=== PATIENT | male | born 1985 | race Hispanic/Latino ===

== ENCOUNTER 2019-04-10 17:58 | Emergency (ER) | payer SELFPAY ==
[2019-04-10] MEDS ORDERED: KETOROLAC 30 MG/ML INJ ONE (18:59)
--- NOTE | 2019-04-10 19:03 | ER ---
Nurse's Notes [facility] Name: Kendall Mata Age: 33 yrs Sex: Male : 1985 Arrival Date: 04/10/2019 Time: 18:00 Bed 12 Private MD: Diagnosis: Pain in left foot Presentation: 04/10 18:09 Presenting complaint: Patient states: pain to left heel that began 1 week ago. Pt aa5 denies known injury. Transition of care: patient was not received from another setting of care. Onset of symptoms was March 2019. Risk Assessment: Do you want to hurt yourself or someone else? Patient reports no desire to harm self or others. Initial Sepsis Screen: Does the patient meet any 2 criteria? No. Patient's initial sepsis screen is negative. Does the patient have a suspected source of infection? No. Patient's initial sepsis screen is negative. Care prior to arrival: None. 18:09 Method Of Arrival: Ambulatory aa5 18:09 Acuity: ZOHAIB 4 aa5 Historical: - Allergies: 18:10 No Known Allergies; aa5 - PMHx: 18:10 None; aa5 - PSHx: 18:10 None; aa5 - Immunization history:: Flu vaccine is not up to date. - Social history:: Smoking status: Patient uses tobacco products, smokes one-half pack cigarettes per day. - Ebola Screening: : No symptoms or risks identified at this time. Screenin:10 Abuse screen: Denies threats or abuse. Nutritional screening: No deficits noted. aa5 Tuberculosis screening: No symptoms or risk factors identified. Fall Risk None identified. Assessment: 18:10 General: Appears comfortable, Behavior is calm, cooperative. Pain: Complains of pain in aa5 left heel Quality of pain is described as pressure. Neuro: Level of Consciousness is awake, alert, obeys commands, Oriented to person, place, time, situation. Cardiovascular: Patient's skin is warm and dry. Respiratory: Airway is patent Respiratory effort is even, unlabored, Respiratory pattern is regular, symmetrical. GI: No signs and/or symptoms were reported involving the gastrointestinal system. : No signs and/or symptoms were reported regarding the genitourinary system. EENT: No signs and/or symptoms were reported regarding the EENT system. Derm: Skin is pink, warm \T\ dry. Musculoskeletal: Range of motion: intact in all extremities. 18:46 Reassessment: Patient appears in no apparent distress at this time. Patient and/or iw family updated on plan of care and expected duration. Pain level reassessed. Patient is alert, oriented x 3, equal unlabored respirations, skin warm/dry/pink. Vital Signs: 18:10 BP 139 / 72; Pulse 88; Resp 18 S; Temp 97.8(TE); Pulse Ox 97% on R/A; Weight 102.97 kg aa5 (R); Height 5 ft. 9 in. (175.26 cm) (R); Pain 3/10; 18:10 Body Mass Index 33.52 (102.97 kg, 175.26 cm) aa5 ED Course: 18:00 Patient arrived in ED. rg4 18:02 Meghana Mejía FNP-C is [facility]. snw 18:02 Kishan Webb MD is Attending Physician. snw 18:09 Arm band placed on. aa5 18:09 Patient has correct armband on for positive identification. Adult w/ patient. aa5 18:10 Triage completed. aa5 18:39 Alexsandra Leo, RN is Primary Nurse. aa5 18:46 No provider procedures requiring assistance completed. Patient did not have IV access iw during this emergency room visit. 20:36 Foot Left 3 View XRAY In Process Unspecified. EDMS Administered Medications: 18:46 Drug: TORadol 30 mg Route: IM; Site: right deltoid; iw 19:13 Follow up: Response: No adverse reaction ak1 Outcome: 19:03 Discharge ordered by . snw 19:18 Discharged to home ambulatory, with family. ak1 19:18 Condition: good 19:18 Discharge instructions given to patient, family, Instructed on discharge instructions, follow up and referral plans. no drinking with medication, no driving heavy equipment, medication usage, Demonstrated understanding of instructions, follow-up care, medications, Prescriptions given X 1. 19:18 Patient left the ED. ak1 Signatures: Dispatcher [employer] EDMS Meghana Mejía FNP-C FNP-Carol Ann Peck RN RN iw Alexsandra Leo RN RN aa5 Miriam Pena RN RN ak1 Shanice Mack rg4
--- NOTE | 2019-04-10 19:03 | EDPHYS ---
Physician Documentation [facility] Name: Kendall Mata Age: 33 yrs Sex: Male : 1985 Arrival Date: 04/10/2019 Time: 18:00 Bed 12 Private MD: ED Physician Kishan Webb HPI: 04/10 18:43 This 33 yrs old Male presents to ER via Ambulatory with complaints of heel snw pain. 18:43 Onset: The symptoms/episode began/occurred gradually, and became persistent. Associated snw signs and symptoms: Pertinent positives: pain on ambulation, walking on tiptoe to left. Modifying factors: the patient symptoms are aggravated by pressure. The patient has not experienced similar symptoms in the past. The patient has not recently seen a physician. pt states he was unable to walk in work boots today and called in second to pain. Historical: - Allergies: 18:10 No Known Allergies; aa5 - PMHx: 18:10 None; aa5 - PSHx: 18:10 None; aa5 - Immunization history:: Flu vaccine is not up to date. - Social history:: Smoking status: Patient uses tobacco products, smokes one-half pack cigarettes per day. - Ebola Screening: : No symptoms or risks identified at this time. ROS: 18:43 Constitutional: Negative for fever, chills, and weight loss, Eyes: Negative for injury, snw pain, redness, and discharge, ENT: Negative for injury, pain, and discharge, Neck: Negative for injury, pain, and swelling, Cardiovascular: Negative for chest pain, palpitations, and edema, Respiratory: Negative for shortness of breath, cough, wheezing, and pleuritic chest pain, Abdomen/GI: Negative for abdominal pain, nausea, vomiting, diarrhea, and constipation, Back: Negative for injury and pain, : Negative for injury, bleeding, discharge, and swelling, Skin: Negative for injury, rash, and discoloration, Neuro: Negative for headache, weakness, numbness, tingling, and seizure. 18:43 MS/extremity: Positive for pain, of the left heel pain . Exam: 18:43 Constitutional: This is a well developed, well nourished patient who is awake, alert, snw and in no acute distress. Head/Face: Normocephalic, atraumatic. Eyes: Pupils equal round and reactive to light, extra-ocular motions intact. Lids and lashes normal. Conjunctiva and sclera are non-icteric and not injected. Cornea within normal limits. Periorbital areas with no swelling, redness, or edema. Chest/axilla: Normal chest wall appearance and motion. Nontender with no deformity. No lesions are appreciated. Cardiovascular: Regular rate and rhythm with a normal S1 and S2. No gallops, murmurs, or rubs. Normal PMI, no JVD. No pulse deficits. Respiratory: Lungs have equal breath sounds bilaterally, clear to auscultation and percussion. No rales, rhonchi or wheezes noted. No increased work of breathing, no retractions or nasal flaring. Back: No spinal tenderness. No costovertebral tenderness. Full range of motion. Skin: Warm, dry with normal turgor. Normal color with no rashes, no lesions, and no evidence of cellulitis. Neuro: Awake and alert, GCS 15, oriented to person, place, time, and situation. Cranial nerves II-XII grossly intact. Motor strength 5/5 in all extremities. Sensory grossly intact. Cerebellar exam normal. Normal gait. Psych: Awake, alert, with orientation to person, place and time. Behavior, mood, and affect are within normal limits. 18:43 Musculoskeletal/extremity: Extremities: grossly normal except: noted in the left heel: pain, ROM: no acute changes, Circulation is intact in all extremities. Sensation intact. Vital Signs: 18:10 BP 139 / 72; Pulse 88; Resp 18 S; Temp 97.8(TE); Pulse Ox 97% on R/A; Weight 102.97 kg aa5 (R); Height 5 ft. 9 in. (175.26 cm) (R); Pain 3/10; 18:10 Body Mass Index 33.52 (102.97 kg, 175.26 cm) aa5 MDM: 18:21 Patient medically screened. [facility] 19:03 Data reviewed: vital signs, nurses notes. Data interpreted: Pulse oximetry: on room air snw is 97 %. Interpretation: normal. Counseling: I had a detailed discussion with the patient and/or guardian regarding: the historical points, exam findings, and any diagnostic results supporting the discharge/admit diagnosis, radiology results, the need for outpatient follow up, to return to the emergency department if symptoms worsen or persist or if there are any questions or concerns that arise at home. Special discussion: I have referred the patient to see his PCP for further evaluation of high blood pressure. Based on the history and exam findings, there is no indication for further emergent testing or inpatient evaluation. I discussed with the patient/guardian the need to see the primary care provider for further evaluation of the symptoms. 04/10 18:41 Order name: Foot Left 3 View XRAY snw Administered Medications: 18:46 Drug: TORadol 30 mg Route: IM; Site: right deltoid; iw 19:13 Follow up: Response: No adverse reaction ak1 Disposition: 04/11 07:07 Co-signature as Attending Physician, Kishan Webb MD I agree with the assessment and dalton plan of care. Disposition: 04/10/19 19:03 Discharged to Home. Impression: Pain in left foot. - Condition is Stable. - Discharge Instructions: Musculoskeletal Pain, Cryotherapy, Heat Therapy. - Prescriptions for Diclofenac Sodium 75 mg Oral Tablet Sustained Release - take 1 tablet by ORAL route 2 times per day; 30 tablet. - Work release form, Medication Reconciliation Form, Thank You Letter, Antibiotic Education, Prescription Opioid Use form. - Follow up: Private Physician; When: 2 - 3 days; Reason: Recheck today's complaints, Continuance of care, Re-evaluation by your physician. Follow up: Emergency Department; When: As needed; Reason: Worsening of condition. Signatures: Dispatcher [employer] Kishan Nickerson MD MD cha Therrien, Shelly, PATENT PARALEGAL-C PATENT PARALEGAL-Csnw Carol Ann Piedra RN RN iw Calderon, Audri, RN RN aa5 Miriam Pena RN RN ak1 Corrections: (The following items were deleted from the chart) 04/10 19:18 19:03 04/10/2019 19:03 Discharged to Home. Impression: Pain in left foot. Condition is ak1 Stable. Discharge Instructions: Musculoskeletal Pain, Cryotherapy, Heat Therapy. Prescriptions for Diclofenac Sodium 75 mg Oral Tablet Sustained Release - take 1 tablet by ORAL route 2 times per day; 30 tablet. and Forms are Work release form, Medication Reconciliation Form, Thank You Letter, Antibiotic Education, Prescription Opioid Use. Follow up: Private Physician; When: 2 - 3 days; Reason: Recheck today's complaints, Continuance of care, Re-evaluation by your physician. Follow up: Emergency Department; When: As needed; Reason: Worsening of condition. snw
--- NOTE | 2019-04-12 12:36 | RAD REPORT ---
EXAM DESCRIPTION: RAD - Foot Left 3 View - 04/11/2019 11:39 am CLINICAL HISTORY: Left Foot pain FINDINGS: No fracture or dislocation is seen. No significant bone or joint abnormality seen
== END 2019-04-10 19:18 | disposition home or self-care (01) ==
LOC: ER 17:58
DX: M79.672 Pain in left foot (principal); F17.210 Nicotine dependence, cigarettes, uncomplicated
CPT/HCPCS: 96372; 99283

== ENCOUNTER 2019-05-08 06:01 | Emergency (ER) | payer SELFPAY ==
--- OUTSIDE RECORDS SUMMARY | 2019-05-08 06:04 | XMS REPORT ---
:1985 [facility] Address [address] [place] [address] [place] [id number] Care Team Providers Name Role Phone Unavailable Unavailable Unavailable Problems This patient has no known problems. Allergies, Adverse Reactions, Alerts This patient has no known allergies or adverse reactions. Medications This patient has no known medications.
[2019-05-08] MEDS ORDERED: HYDROCODONE/APAP 7.5/325 MG TAB ONE (06:38)
--- NOTE | 2019-05-08 07:02 | ER ---
Nurse's Notes [facility] Name: Kendall Mata Age: 33 yrs Sex: Male : 1985 Arrival Date: 05/08/2019 Time: 06:03 Bed 5 Private MD: Diagnosis: Sprain of ankle Presentation: 05/08 06:20 Presenting complaint: Patient states: I was walking in my house and there is a step ed1 down from the kitchen to the living room and I rolled my ankle. Transition of care: patient was not received from another setting of care. Onset of symptoms was May 08, 2019. Risk Assessment: Do you want to hurt yourself or someone else? Patient reports no desire to harm self or others. Initial Sepsis Screen: Does the patient meet any 2 criteria? No. Patient's initial sepsis screen is negative. Does the patient have a suspected source of infection? No. Patient's initial sepsis screen is negative. Care prior to arrival: None. 06:20 Method Of Arrival: Wheelchair ed1 06:20 Acuity: ZOHAIB 4 ed1 Triage Assessment: 06:21 General: Appears uncomfortable, Behavior is calm, cooperative. Pain: Complains of pain ed1 in lateral side of right foot and right lateral malleolus Pain currently is 8 out of 10 on a pain scale. Quality of pain is described as sharp, throbbing, Pain began 1 hour ago. Musculoskeletal: Circulation, motion, and sensation intact. Range of motion: limited in right ankle Swelling present in right ankle. Historical: - Allergies: 06:21 No Known Allergies; ed1 - Home Meds: 06:21 None [Active]; ed1 - PMHx: 06:21 None; ed1 - PSHx: 06:21 None; ed1 - Immunization history:: Adult Immunizations up to date. - Social history:: Smoking status: Patient uses tobacco products, smokes one-half pack cigarettes per day. - Ebola Screening: : Patient negative for fever greater than or equal to 101.5 degrees Fahrenheit, and additional compatible Ebola Virus Disease symptoms Patient denies exposure to infectious person Patient denies travel to an Ebola-affected area in the 21 days before illness onset No symptoms or risks identified at this time. Screenin:48 Abuse screen: Denies threats or abuse. Denies injuries from another. Nutritional lp1 screening: No deficits noted. Tuberculosis screening: No symptoms or risk factors identified. Fall Risk None identified. Assessment: 06:47 General: Appears uncomfortable, Behavior is appropriate for age. Pain: Complains of lp1 pain in right ankle. Neuro: No deficits noted. Cardiovascular: No deficits noted. Respiratory: No deficits noted. GI: No deficits noted. : No deficits noted. EENT: No deficits noted. Derm: Skin is pink, warm \T\ dry. Musculoskeletal: Range of motion: limited in right ankle Swelling present in right ankle. 07:19 Reassessment: Patient appears in no apparent distress at this time. Patient and/or jd3 family updated on plan of care and expected duration. Pain level reassessed. Patient is alert, oriented x 3, equal unlabored respirations, skin warm/dry/pink. reported understanding of discharge. Vital Signs: 06:21 BP 121 / 87; Pulse 103; Resp 17; Temp 97.9(TE); Pulse Ox 97% on R/A; Weight 99.79 kg ed1 (R); Height 5 ft. 9 in. (175.26 cm) (R); Pain 8/10; 06:21 Body Mass Index 32.49 (99.79 kg, 175.26 cm) ed1 ED Course: 06:03 Patient arrived in ED. am2 06:15 Yessenia Rand FNP-C is [facility]. kb 06:15 Kishan Webb MD is Attending Physician. kb 06:21 Triage completed. ed1 06:21 Arm band placed on. ed1 06:46 X-ray completed. Portable x-ray completed in exam room. Patient tolerated procedure kw well. 06:47 Mili Ramirez, RN is Primary Nurse. lp1 06:48 Patient has correct armband on for positive identification. lp1 06:49 Ankle Right 3 View XRAY In Process Unspecified. EDMS 07:18 No provider procedures requiring assistance completed. Patient did not have IV access jd3 during this emergency room visit. Crutch training done. Melvin wrap to right ankle. Administered Medications: 06:24 Drug: [place] (7.5 mg-325 mg) 1 tabs Route: PO; ed1 07:18 Follow up: Response: No adverse reaction jd3 Outcome: 07:02 Discharge ordered by . kb 07:18 Discharged to home ambulatory, with family. jd3 07:18 Condition: stable 07:18 Discharge instructions given to patient, Instructed on discharge instructions, follow up and referral plans. medication usage, Demonstrated understanding of instructions, follow-up care, medications, Prescriptions given X 1. 07:21 Patient left the ED. jd3 Signatures: Dispatcher [employer] EDCO Yessenia Rand, NIGHT WAREHOUSE MANAGER-C NIGHT WAREHOUSE MANAGER-Jayne Sharma RN RN ed1 Courtney Lombardo Laura, RN RN lp1 Mary Gutierrez am2 Trever Roberson RN RN jd3
--- NOTE | 2019-05-08 07:02 | EDPHYS ---
Physician Documentation [facility] Name: Kendall Mata Age: 33 yrs Sex: Male : 1985 Arrival Date: 05/08/2019 Time: 06:03 Bed 5 Private MD: ED Physician Kishan Webb HPI: 05/08 06:19 This 33 yrs old Male presents to ER via Unassigned with complaints of Ankle kb Injury. 06:19 The patient presents with an injury, pain, that is acute, swelling, tenderness. The kb complaints affect the right ankle. Onset: The symptoms/episode began/occurred just prior to arrival. Context: The problem was sustained at home, resulted from the patient tripping, strep. Associated signs and symptoms: Pertinent positives: swelling, Pertinent negatives: calf tenderness, fever, nausea, numbness, rash, tingling, vomiting, warmth, weakness. Modifying factors: The symptoms are alleviated by nothing, the symptoms are aggravated by weight bearing, movement. Severity of symptoms: At their worst the symptoms were moderate, in the emergency department the symptoms are unchanged. The patient has not experienced similar symptoms in the past. The patient has not recently seen a physician. Historical: - Allergies: 06:21 No Known Allergies; ed1 - Home Meds: 06:21 None [Active]; ed1 - PMHx: 06:21 None; ed1 - PSHx: 06:21 None; ed1 - Immunization history:: Adult Immunizations up to date. - Social history:: Smoking status: Patient uses tobacco products, smokes one-half pack cigarettes per day. - Ebola Screening: : Patient negative for fever greater than or equal to 101.5 degrees Fahrenheit, and additional compatible Ebola Virus Disease symptoms Patient denies exposure to infectious person Patient denies travel to an Ebola-affected area in the 21 days before illness onset No symptoms or risks identified at this time. ROS: 06:19 Constitutional: Negative for fever, chills, and weight loss, Cardiovascular: Negative kb for chest pain, palpitations, and edema, Respiratory: Negative for shortness of breath, cough, wheezing, and pleuritic chest pain, Abdomen/GI: Negative for abdominal pain, nausea, vomiting, diarrhea, and constipation, Skin: Negative for injury, rash, and discoloration, Neuro: Negative for headache, weakness, numbness, tingling, and seizure. 06:19 MS/extremity: Positive for injury or acute deformity, pain, swelling, tenderness. Exam: 06:19 Constitutional: This is a well developed, well nourished patient who is awake, alert, kb and in no acute distress. Head/Face: Normocephalic, atraumatic. Neck: Trachea midline, no thyromegaly or masses palpated, and no cervical lymphadenopathy. Supple, full range of motion without nuchal rigidity, or vertebral point tenderness. No Meningismus. Chest/axilla: Normal chest wall appearance and motion. Nontender with no deformity. No lesions are appreciated. Cardiovascular: Regular rate and rhythm with a normal S1 and S2. No gallops, murmurs, or rubs. Normal PMI, no JVD. No pulse deficits. Respiratory: Lungs have equal breath sounds bilaterally, clear to auscultation and percussion. No rales, rhonchi or wheezes noted. No increased work of breathing, no retractions or nasal flaring. Abdomen/GI: Soft, non-tender, with normal bowel sounds. No distension or tympany. No guarding or rebound. No evidence of tenderness throughout. Skin: Warm, dry with normal turgor. Normal color with no rashes, no lesions, and no evidence of cellulitis. Neuro: Awake and alert, GCS 15, oriented to person, place, time, and situation. Cranial nerves II-XII grossly intact. Motor strength 5/5 in all extremities. Sensory grossly intact. Cerebellar exam normal. Normal gait. 06:19 Musculoskeletal/extremity: Extremities: grossly normal except: noted in the right ankle: pain, swelling, tenderness, ROM: intact in all extremities, Circulation is intact in all extremities. Sensation intact. Weight bearing: can bear weight with assistance only. Vital Signs: 06:21 BP 121 / 87; Pulse 103; Resp 17; Temp 97.9(TE); Pulse Ox 97% on R/A; Weight 99.79 kg ed1 (R); Height 5 ft. 9 in. (175.26 cm) (R); Pain 8/10; 06:21 Body Mass Index 32.49 (99.79 kg, 175.26 cm) ed1 MDM: 06:16 Patient medically screened. kb 06:19 Data reviewed: vital signs, nurses notes. Data interpreted: Pulse oximetry: on room air kb is 100 %. Interpretation: normal. 07:01 Counseling: I had a detailed discussion with the patient and/or guardian regarding: the kb historical points, exam findings, and any diagnostic results supporting the discharge/admit diagnosis, radiology results, the need for outpatient follow up, a family practitioner, a orthopedic surgeon, to return to the emergency department if symptoms worsen or persist or if there are any questions or concerns that arise at home. 05/08 06:18 Order name: Ankle Right 3 View XRAY kb 05/08 07:09 Order name: Melvin Wrap; Complete Time: 07:17 kb 05/08 07:09 Order name: Crutches; Complete Time: 07:17 kb Administered Medications: 06:24 Drug: [place] (7.5 mg-325 mg) 1 tabs Route: PO; ed1 07:18 Follow up: Response: No adverse reaction jd3 Disposition: 08:33 Co-signature as Attending Physician, Kishan Webb MD I agree with the assessment and dalton plan of care. Disposition: 05/08/19 07:02 Discharged to Home. Impression: Sprain of ankle. - Condition is Stable. - Discharge Instructions: Ankle Sprain, [id number]. - Prescriptions for Diclofenac Sodium 75 mg Oral Tablet, Delayed Release (E.C.) - take 1 tablet by ORAL route 2 times per day As needed; 30 tablet. - Work release form, Medication Reconciliation Form, Thank You Letter, Antibiotic Education, Prescription Opioid Use form. - Follow up: Emergency Department; When: As needed; Reason: Worsening of condition. Follow up: Private Physician; When: 2 - 3 days; Reason: Recheck today's complaints, Continuance of care, Re-evaluation by your physician. Signatures: Dispatcher [employer] EDMI Yessenia Rand, PRITIC PAUL-Kishan Junior MD MD cha Riggs, Erika, RN RN ed1 Trever Roberson RN RN jd3 Corrections: (The following items were deleted from the chart) 07:21 07:02 05/08/2019 07:02 Discharged to Home. Impression: Sprain of ankle. Condition is jd3 Stable. Forms are Medication Reconciliation Form, Thank You Letter, Antibiotic Education, Prescription Opioid Use. Follow up: Emergency Department; When: As needed; Reason: Worsening of condition. Follow up: Private Physician; When: 2 - 3 days; Reason: Recheck today's complaints, Continuance of care, Re-evaluation by your physician. kb
--- NOTE | 2019-05-08 08:19 | RAD REPORT ---
EXAM DESCRIPTION: RAD - Ankle Right 3 View - 05/08/2019 6:49 am CLINICAL HISTORY: PAIN Twisting injury to the right ankle COMPARISON: No comparisons FINDINGS: Soft tissue swelling is noted. No acute fracture or dislocation seen.
== END 2019-05-08 07:21 | disposition home or self-care (01) ==
LOC: ER 06:01
DX: S93.401A Sprain of unspecified ligament of right ankle, initial encounter (principal); W01.0XXA Fall on same level from slipping, tripping and stumbling without subsequent striking against object, initial encounter; Y92.009 Unspecified place in unspecified non-institutional (private) residence as the place of occurrence of the external cause; F17.210 Nicotine dependence, cigarettes, uncomplicated
CPT/HCPCS: 99284

== ENCOUNTER 2019-09-05 15:55 | Emergency (ER) | payer SELFPAY ==
--- NOTE | 2019-09-05 17:07 | ER ---
Nurse's Notes [facility] Name: Kendall Mata Age: 33 yrs Sex: Male : 1985 Arrival Date: 09/05/2019 Time: 15:55 Bed 10 Private MD: Diagnosis: Malaise and fatigue Presentation: 09/05 16:02 Presenting complaint: Malaise, sore throat, and fatigue x 2 days. Transition of care: hb patient was not received from another setting of care. Onset of symptoms was September 04, 2019. Risk Assessment: Do you want to hurt yourself or someone else?. Initial Sepsis Screen: Does the patient meet any 2 criteria? No. Patient's initial sepsis screen is negative. Does the patient have a suspected source of infection? No. Patient's initial sepsis screen is negative. Care prior to arrival: None. 16:02 Method Of Arrival: Ambulatory 16:02 Acuity: ZOHAIB 4 hb Triage Assessment: 16:45 General: Appears in no apparent distress. iw 17:10 General: Behavior is calm. iw Historical: - Allergies: 16:04 No Known Allergies; hb - Home Meds: 16:04 None [Active]; hb - PSHx: 16:04 None; hb - Immunization history:: Adult Immunizations up to date. - Social history:: Smoking status: Patient uses tobacco products, smokes one-half pack cigarettes per day. - Ebola Screening: : No symptoms or risks identified at this time. Screenin:40 Abuse screen: Denies threats or abuse. Denies injuries from another. Nutritional iw screening: No deficits noted. Tuberculosis screening: No symptoms or risk factors identified. Fall Risk None identified. Assessment: 16:40 General: Appears in no apparent distress. Behavior is calm, cooperative. Pain: iw Complains of pain in head. Neuro: Level of Consciousness is awake, alert, obeys commands, Oriented to person, place, time, situation, Moves all extremities. Cardiovascular: Capillary refill < 3 seconds in bilateral fingers. Respiratory: Respiratory effort is even, unlabored, Respiratory pattern is regular, symmetrical. GI: No signs and/or symptoms were reported involving the gastrointestinal system. Derm: Skin is intact, is healthy with good turgor. Musculoskeletal: Range of motion: intact in all extremities. Vital Signs: 16:04 BP 109 / 72; Pulse 80; Resp 16; Temp 97.2(TE); Pulse Ox 99% on R/A; Weight 99.79 kg; hb Height 5 ft. 9 in. (175.26 cm); Pain 5/10; 16:04 Body Mass Index 32.49 (99.79 kg, 175.26 cm) hb ED Course: 15:55 Patient arrived in ED. as 16:00 Yessenia Rand FNP-C is [facility]. kb 16:00 Griffin Manning MD is Attending Physician. kb 16:03 Triage completed. hb 16:04 Arm band placed on. hb 16:40 Patient has correct armband on for positive identification. iw 17:10 Carol Ann Piedra, RN is Primary Nurse. iw 17:19 No provider procedures requiring assistance completed. Patient did not have IV access iw during this emergency room visit. Administered Medications: No medications were administered Outcome: 17:05 Discharge ordered by MD. kb 17:19 Discharged to home ambulatory. iw 17:19 Condition: good 17:19 Discharge instructions given to patient, family, Instructed on discharge instructions, follow up and referral plans. Demonstrated understanding of instructions, follow-up care. 17:20 Patient left the ED. iw Signatures: Yessenia Rand FNP-C FNP-Omayra Bates as Carol Ann Piedra, RN MARILU iw Vanessa Calix RN RN hb Corrections: (The following items were deleted from the chart) 16:05 16:02 Social history: Smoking status: Patient/guardian denies using tobacco, hb hb
--- NOTE | 2019-09-05 17:08 | EDPHYS ---
Physician Documentation [facility] Name: Kendall Mata Age: 33 yrs Sex: Male : 1985 Arrival Date: 09/05/2019 Time: 15:55 Bed 10 Private MD: ED Physician Grififn Manning HPI: 09/05 16:58 This 33 yrs old Male presents to ER via Ambulatory with complaints of Flu kb Symptoms. 17:01 The patient or guardian reports flu symptoms, arthralgias, myalgias, no appetite. kb Onset: The symptoms/episode began/occurred yesterday. Severity of symptoms: At their worst the symptoms were mild, moderate, in the emergency department the symptoms are unchanged. Modifying factors: The symptoms are alleviated by nothing, the symptoms are aggravated by nothing. Associated signs and symptoms: Pertinent positives: sore throat, Pertinent negatives: chest pain, diarrhea, ear ache, fever, nausea, rhinorrhea, vomiting. The patient has not experienced similar symptoms in the past. The patient has not recently seen a physician. Pt reports he had the flu at the beginning of the year and was told he could have done something about it if he would have came in sooner so he came in early this time. States fatigue, malaise and sore throat started yesterday. . Historical: - Allergies: 16:04 No Known Allergies; hb - Home Meds: 16:04 None [Active]; hb - PSHx: 16:04 None; hb - Immunization history:: Adult Immunizations up to date. - Social history:: Smoking status: Patient uses tobacco products, smokes one-half pack cigarettes per day. - Ebola Screening: : No symptoms or risks identified at this time. ROS: 16:59 Neck: Negative for injury, pain, and swelling, Cardiovascular: Negative for chest pain, kb palpitations, and edema, Respiratory: Negative for shortness of breath, cough, wheezing, and pleuritic chest pain, Abdomen/GI: Negative for abdominal pain, nausea, vomiting, diarrhea, and constipation, Back: Negative for injury and pain, : Negative for injury, bleeding, discharge, and swelling, MS/Extremity: Negative for injury and deformity, Skin: Negative for injury, rash, and discoloration, Neuro: Negative for headache, weakness, numbness, tingling, and seizure. 16:59 Constitutional: Positive for body aches, fatigue, malaise, Negative for chills, fever, poor PO intake, weight loss. 16:59 ENT: Positive for sore throat. Exam: 16:59 Constitutional: This is a well developed, well nourished patient who is awake, alert, kb and in no acute distress. Head/Face: Normocephalic, atraumatic. ENT: Nares patent. No nasal discharge, no septal abnormalities noted. Tympanic membranes are normal and external auditory canals are clear. Oropharynx with no redness, swelling, or masses, exudates, or evidence of obstruction, uvula midline. Mucous membranes moist. Neck: Trachea midline, no thyromegaly or masses palpated, and no cervical lymphadenopathy. Supple, full range of motion without nuchal rigidity, or vertebral point tenderness. No Meningismus. Chest/axilla: Normal chest wall appearance and motion. Nontender with no deformity. No lesions are appreciated. Cardiovascular: Regular rate and rhythm with a normal S1 and S2. No gallops, murmurs, or rubs. Normal PMI, no JVD. No pulse deficits. Respiratory: Lungs have equal breath sounds bilaterally, clear to auscultation and percussion. No rales, rhonchi or wheezes noted. No increased work of breathing, no retractions or nasal flaring. Abdomen/GI: Soft, non-tender, with normal bowel sounds. No distension or tympany. No guarding or rebound. No evidence of tenderness throughout. Skin: Warm, dry with normal turgor. Normal color with no rashes, no lesions, and no evidence of cellulitis. MS/ Extremity: Pulses equal, no cyanosis. Neurovascular intact. Full, normal range of motion. Neuro: Awake and alert, GCS 15, oriented to person, place, time, and situation. Cranial nerves II-XII grossly intact. Motor strength 5/5 in all extremities. Sensory grossly intact. Cerebellar exam normal. Normal gait. Vital Signs: 16:04 BP 109 / 72; Pulse 80; Resp 16; Temp 97.2(TE); Pulse Ox 99% on R/A; Weight 99.79 kg; hb Height 5 ft. 9 in. (175.26 cm); Pain 5/10; 16:04 Body Mass Index 32.49 (99.79 kg, 175.26 cm) hb MDM: 16:06 Patient medically screened. kb 16:59 Data reviewed: vital signs, nurses notes. Data interpreted: Pulse oximetry: on room air kb is 99 %. Interpretation: normal. Counseling: I had a detailed discussion with the patient and/or guardian regarding: the historical points, exam findings, and any diagnostic results supporting the discharge/admit diagnosis, lab results, the need for outpatient follow up, a family practitioner, to return to the emergency department if symptoms worsen or persist or if there are any questions or concerns that arise at home. 09/05 16:06 Order name: Flu; Complete Time: 17:05 kb 09/05 16:06 Order name: Strep; Complete Time: 16:45 kb 09/05 16:48 Order name: Throat Culture EDMS Administered Medications: No medications were administered Disposition: 09/06 06:50 Co-signature as Attending Physician, Griffin Manning MD I agree with the assessment and kdr plan of care. Disposition: 09/05/19 17:05 Discharged to Home. Impression: Malaise and fatigue. - Condition is Stable. - Discharge Instructions: Fatigue, Viral Respiratory Infection, [id number]. - Work release form, Medication Reconciliation Form, Thank You Letter, Antibiotic Education, Prescription Opioid Use form. - Follow up: Emergency Department; When: As needed; Reason: Worsening of condition. Follow up: Private Physician; When: 2 - 3 days; Reason: Recheck today's complaints, Continuance of care, Re-evaluation by your physician. Signatures: Dispatcher [employer] EDNV Yessenia Rand, REFERRAL NURSE-C REFERRAL NURSE-Ckb Griffin Manning MD MD [facility] Carol Ann Piedra RN RN iw Vanessa Calix RN RN Corrections: (The following items were deleted from the chart) 09/05 16:05 16:02 Social history: Smoking status: Patient/guardian denies using tobacco, hb hb 17:20 17:05 09/05/2019 17:05 Discharged to Home. Impression: Malaise and fatigue. Condition iw is Stable. Forms are Medication Reconciliation Form, Thank You Letter, Antibiotic Education, Prescription Opioid Use. Follow up: Emergency Department; When: As needed; Reason: Worsening of condition. Follow up: Private Physician; When: 2 - 3 days; Reason: Recheck today's complaints, Continuance of care, Re-evaluation by your physician. kb
[2019-09-05 20:35] VITALS: BP 109/72; TEMP 97.2; O2SAT 99
== END 2019-09-05 17:20 | disposition home or self-care (01) ==
LOC: ER 15:55
DX: R53.81 Other malaise (principal); R53.83 Other fatigue; F17.210 Nicotine dependence, cigarettes, uncomplicated
CPT/HCPCS: 87070; 87081; 87804; 99281

== ENCOUNTER 2019-12-08 09:51 | Emergency (ER) | payer SELFPAY ==
[2019-12-08] MEDS ORDERED: TRAMADOL HCL 50 MG TAB ONE (10:58)
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
[2019-12-08 11:45] VITALS: BP 117/84; TEMP 98; O2SAT 99
== END 2019-12-08 11:36 | disposition home or self-care (01) ==
LOC: ER 09:51
DX: R51 Headache (principal); M54.2 Cervicalgia; V43.62XA Car passenger injured in collision with other type car in traffic accident, initial encounter; Y93.89 Activity, other specified; Y92.410 Unspecified street and highway as the place of occurrence of the external cause
CPT/HCPCS: 70450; 72125; 99284